=== PATIENT | male | born 1990 | race African-American/Black ===

== ENCOUNTER 2017-06-12 13:10 | Inpatient (IN) | payer MEDICAID ==
[~2017-06-12] VITALS: Ht 175.3 cm; Wt 72.6 kg
[2017-06-12 13:20] VITALS: BP 111/66
[2017-06-12] MEDS ORDERED: LORazepam 2 MG/ML VIAL IM/IVP STA (13:41)
[2017-06-12 14:41] LABS: BASOPHILS # (AUTO) 0.2 K/uL (0.00-0.22); BASOPHILS % (AUTO) 2.2 % (0.0-2.0); EOSINOPHILS # (AUTO) 0.1 K/uL (0-0.4); HEMATOCRIT 41.6 % (36-52); HEMOGLOBIN 13.7 g/dL (12.0-18.0); LYMPHOCYTES # (AUTO) 1.5 K/uL (2.0-11.5); LYMPHOCYTES % (AUTO) 13.4 % (20.5-51.1); MEAN CORPUSCULAR HEMOGLOBIN 29 pg (27-31); MEAN CORPUSCULAR HGB CONC 33 g/dL (33-37); MEAN CORPUSCULAR VOLUME 88 fL (80-94); MONOCYTES # (AUTO) 0.9 K/uL (0.8-1.0); MONOCYTES % (AUTO) 8.4 % (1.7-9.3); NEUTROPHILS # (AUTO) 8.3 K/uL (1.8-7.7); PLATELET COUNT (AUTO) 323 K/uL (140-450); RED BLOOD CELL COUNT(AUTO) 4.75 MIL/uL (4.20-6.10); RED CELL DISTRIBUTION WIDTH 13.4 % (11.6-13.7)
[2017-06-12 14:45] LABS: ANION GAP 27.2 (8-16); CARBON DIOXIDE 20.9 mmol/L (21-32); CHLORIDE 106 mmol/L (98-107); CREATININE 1.4 mg/dL (0.7-1.3); GFR ARICAN-AMERICAN 77 mL/min (>90); GLUCOSE 94 mg/dL (74-106); POTASSIUM 4.1 mmol/L (3.5-5.1); SODIUM SERUM 150 mmol/L (136-145); UREA NITROGEN, BLOOD 9 mg/dL (7-18)
[2017-06-12 14:52] LABS: ALBUMIN 5.2 g/dL (3.4-5.0); ASPARTATE AMINOTRANSFERASE 26 U/L (15-37); TOTAL BILIRUBIN 0.2 mg/dL (0.0-1.0)
[2017-06-12 14:54] LABS: ACETAMINOPHEN < 0.5 ug/ml (10-30); SALICYLATE < 2.8 mg/dL (2.8-20.0)
[2017-06-12 15:19] LABS: APPEARANCE,URINE CLEAR (CLEAR); BILIRUBIN,URINE NEGATIVE (NEGATIVE); BLOOD, URINE NEGATIVE (NEGATIVE); COLOR,URINE YELLOW (YELLOW); LEUKOCYTE ESTERASE ,URINE NEGATIVE (NEGATIVE); NITRITE, URINE NEGATIVE (NEGATIVE); UGLUCOSE NEGATIVE (NEGATIVE)
[2017-06-12 15:25] LABS: BARBITURATE, URINE NEG. ng/ml (NEG <=200); BENZODIAZEPINE, URINE NEG. ng/mL (NEG <=200); CANNABINOID, URINE NEG. ng/mL (NEG <=50); COCAINE, URINE NEG. ng/mL (NEG <=300); OPIATE, URINE NEG. ng/mL (NEG <=2000); PHENCYCLIDINE SCREEN,URINE NEG. ng/mL (NEG <=25)
[2017-06-12] MEDS ORDERED: METOCLOPRAMIDE 10 MG/2 ML INJ VIAL IM ONE (16:55)
[2017-06-12] MEDS ORDERED: diphenhydrAMINE 50 MG/ML VIAL IM ONE (16:55)
[2017-06-12] MEDS ORDERED: ZOLPIDEM 5 MG TAB PO PRN (17:35)
[2017-06-12] MEDS ORDERED: ACETAMINOPHEN 325 MG TAB PO PRN (17:35)
[2017-06-12] MEDS ORDERED: LORazepam 0.5 MG TAB PO PRN (17:35)
[2017-06-12] MEDS ORDERED: ONDANSETRON 4 MG/2 ML VIAL IM/IVP PRN (17:35)
[2017-06-12] MEDS ORDERED: DOCUSATE SODIUM 100 MG GELCAP PO PRN (17:35)
[2017-06-12] MEDS ORDERED: HYDROcodone/APAP 7.5/325 MG 1 TAB PO PRN (17:35)
[2017-06-12] MEDS ORDERED: MORPHINE SULFATE 2 MG/ML SYR IVP PRN (17:35)
[2017-06-12] MEDS: NACL 0.9% 1,000 ML IV SCH (19:41)
[2017-06-12 20:22] LABS: PROTHROMBIN TIME 10.9 secs (10.8-13.4)
[2017-06-12 20:36] LABS: CHOL/HDL RATIO 2.7 (1-4.5); FREE T4 (FREE THYROXINE) 1.76 ng/dL (0.76-1.46); MAGNESIUM 2.7 mg/dL (1.8-2.4); PHOSPHORUS 4.8 mg/dL (2.5-4.9); THYROID STIMULATING HORMONE 1.67 uIU/mL (0.34-3.74)
[2017-06-12 21:34] VITALS: BP 126/66
[2017-06-12] MEDS: FAMOTIDINE 20 MG/2 ML VIAL IVP SCH (22:10)
[2017-06-13] MEDS: NACL 0.9% 1,000 ML IV SCH ×2 (01:44→08:24)
[2017-06-13 02:07] VITALS: BP 124/68
[2017-06-13 07:08] LABS: ANION GAP 19.9 (8-16); CARBON DIOXIDE 23.1 mmol/L (21-32); CREATININE 1.3 mg/dL (0.7-1.3); MAGNESIUM 2.5 mg/dL (1.8-2.4)
[2017-06-13 07:09] LABS: PHOSPHORUS 4.4 mg/dL (2.5-4.9)
[2017-06-13 07:19] LABS: BASOPHILS # (AUTO) 0.1 K/uL (0.00-0.22); BASOPHILS % (AUTO) 1.4 % (0.0-2.0); EOSINOPHILS # (AUTO) 0.1 K/uL (0-0.4); EOSINOPHILS % (AUTO) 0.9 % (0.0-4.0); HEMATOCRIT 45.8 % (36-52); HEMOGLOBIN 14.9 g/dL (12.0-18.0); LYMPHOCYTES # (AUTO) 0.4 K/uL (2.0-11.5); LYMPHOCYTES % (AUTO) 4.6 % (20.5-51.1); MEAN CORPUSCULAR HEMOGLOBIN 29 pg (27-31); MEAN CORPUSCULAR HGB CONC 33 g/dL (33-37); MEAN CORPUSCULAR VOLUME 88 fL (80-94); NEUTROPHILS # (AUTO) 7.9 K/uL (1.8-7.7); NEUTROPHILS % (AUTO) 82.1 % (42.2-75.2); PLATELET COUNT (AUTO) 322 K/uL (140-450); WHITE BLOOD COUNT (AUTO) 9.5 K/uL (4.8-10.8)
[2017-06-13 08:00] VITALS: BP 141/74
[2017-06-13] MEDS: FAMOTIDINE 20 MG/2 ML VIAL IVP SCH (09:00)
[2017-06-13] MEDS: ESCITALOPRAM 20 MG TAB PO SCH (09:00)
[2017-06-13] MEDS ORDERED: LORazepam 0.5 MG TAB PO PRN (14:05)
[2017-06-13 16:00] VITALS: BP 119/93
[2017-06-13] MEDS: FAMOTIDINE 20 MG TAB PO SCH (21:46)
[2017-06-14 00:50] VITALS: BP 121/64
[2017-06-14 06:20] LABS: T4 (THYROXINE) 8.1 ug/dL (4.5-12.0)
[2017-06-14 08:00] VITALS: BP 117/63
[2017-06-14 08:08] LABS: HEMATOCRIT 42.5 % (36-52); HEMOGLOBIN 13.9 g/dL (12.0-18.0); MEAN CORPUSCULAR HEMOGLOBIN 29 pg (27-31); MEAN CORPUSCULAR HGB CONC 33 g/dL (33-37); MEAN CORPUSCULAR VOLUME 88 fL (80-94); PLATELET COUNT (AUTO) 308 K/uL (140-450); RED BLOOD CELL COUNT(AUTO) 4.84 MIL/uL (4.20-6.10); RED CELL DISTRIBUTION WIDTH 13.6 % (11.6-13.7); WHITE BLOOD COUNT (AUTO) 3.4 K/uL (4.8-10.8)
[2017-06-14 08:45] LABS: EOSINOPHILS % (MANUAL) 9 % (0-4); LYMPHOCYTES % (MANUAL) 33 % (20-46); MONOCYTES % (MANUAL) 12 % (5-12)
[2017-06-14 08:53] LABS: ANION GAP 13.3 (8-16); CARBON DIOXIDE 23.9 mmol/L (21-32); CREATININE 1.3 mg/dL (0.7-1.3); POTASSIUM 4.2 mmol/L (3.5-5.1)
[2017-06-14] MEDS: ESCITALOPRAM 20 MG TAB PO SCH (09:00)
[2017-06-14] MEDS: FAMOTIDINE 20 MG TAB PO SCH (09:00)
[2017-06-14] MEDS ORDERED: ESCI20TA47 PO (11:03)
== END 2017-06-14 11:40 | disposition home or self-care (01) | DRG 812 ==
LOC: MED 13:10 → MTU 17:48
PROVIDERS: ADMIT Family Medicine Sports Medicine; ATTEND Family Medicine Sports Medicine
DX: T39.312A Poisoning by propionic acid derivatives, intentional self-harm, initial encounter (principal); N17.0 Acute kidney failure with tubular necrosis; G92 Toxic encephalopathy; E87.0 Hyperosmolality and hypernatremia; E83.41 Hypermagnesemia; F32.9 Major depressive disorder, single episode, unspecified; E78.5 Hyperlipidemia, unspecified; T43.621A Poisoning by amphetamines, accidental (unintentional), initial encounter; F15.20 Other stimulant dependence, uncomplicated; E05.90 Thyrotoxicosis, unspecified without thyrotoxic crisis or storm; F29 Unspecified psychosis not due to a substance or known physiological condition; Y92.89 Other specified places as the place of occurrence of the external cause
CPT/HCPCS: 36415; 71045; 80048; 80053; 80305; 81003; 82150; 82550; 83036; 83690; 83735; 84100; 84436; 84439; 84443; 84479; 84484; 85025; 85610; 85730; 87081; 93005; 96372; 99285; G0480; G0482; J1200; J2060; J2765; J7030; Q0092